=== PATIENT | male | born 1975 | race Caucasian/White ===

== ENCOUNTER 2017-07-31 14:30 | Emergency (ER) | payer SELFPAY ==
[2017-07-31 14:35] VITALS: BP 148/91; PULSE 74; TEMP 98.1; BMI 26.6
--- NOTE | 2017-07-31 15:44 | PDOC ---
Attending Attestation - Resident Resident Name: Raghu Hodge - ED Attending Attestation I have performed the following: I have examined & evaluated the patient, The case was reviewed & discussed with the resident, I agree w/resident's findings & plan, Exceptions are as noted - HPI HPI: 07/31/17 16:01 41yo M with no PMH p/w SOB, worse when speaking for 2 weeks. Not exertional, has no reduced ET. +CP when he takes a deep breath. No trauma. Went to urgent care 2 weeks ago and had a negative workup. No recent immobility, surgery. No hx DVT/PE. No fevers, chills, cough. No abd pain, N/V/D, LE edema, rashes. - Physicial Exam PE: 07/31/17 16:08 GENERAL: Awake, alert, and fully oriented, in no acute distress HEAD: No signs of trauma EYES: PERRLA, EOMI, sclera anicteric, conjunctiva clear ENT: Auricles normal inspection, hearing grossly normal, nares patent, oropharynx clear without exudates. Moist mucosa NECK: Normal ROM, supple, no lymphadenopathy, JVD, or masses LUNGS: Breath sounds equal, clear to auscultation bilaterally. No wheezes, and no crackles HEART: Regular rate and rhythm, normal S1 and S2, no murmurs, rubs or gallops ABDOMEN: Soft, nontender, normoactive bowel sounds. No guarding, no rebound. No masses EXTREMITIES: Normal range of motion, no edema. No clubbing or cyanosis. No cords, erythema, or tenderness NEUROLOGICAL: Normal speech, cranial nerves intact, negative pronator drift, 5/ 5 strength in all 4 extremities, normal sensation to light touch in all 4 extremities, normal cerebellar exam, normal gait, normal reflexes and tone SKIN: Warm, Dry, normal turgor, no rashes or lesions noted. - Medical Decision Making 07/31/17 16:09 41yo M with no PMH p/w SOB and pleuritic CP. Vitals unremarkable. DDx includes but is not limited to bronchitis vs PNA vs ACS vs MSK pain. Pt does not meet any PERC criteria, therefore unlikely PE. Unlikely ACS as pt is healthy, EKG is non ischemic, and heart score is 0 but will check trop as it should likely be positive if there were any events. Plan: -CXR -labs -pain management -reassess 07/31/17 18:44 Labs, CXR, EKG wnl. On re-exam, lungs with some mild L base course BS. Bonib ordered after which patient reports some mild relief. Possible reactive airway disease> Will prescribe albuterol inhaler and DC to follow up at [facility] (pt is uninsured). I discussed the physical exam findings, ancillary test results and final diagnoses with the patient. I answered all of the patient's questions. The patient was satisfied with the care received and felt comfortable with the discharge plan and treatment plan. The patient will call their primary care physician within 24 hours to arrange follow-up and will return to the Emergency Department with any new, persistent or worsening symptoms. Discharge Disposition - Diagnosis Shortness of breath - Discharge Dispostion Disposition: HOME Condition at time of disposition: Stable Admit: No - Prescriptions Prescriptions: Albuterol Sulfate Inhaler - [Ventolin HFA Inhaler -] 1 - 2 inh PO Q4H PRN #1 inhaler PRN Reason: Shortness Of Breath - Referrals - Patient Instructions Printed Discharge Instructions: DI for Shortness of Breath Additional Instructions: Call [phone] for an appointment with a primary doctor within 1 week at [facility], [address] [place] [address]. Return to the emergency department if you have any new, worsening, or concerning symptoms Print Language: INDONESIAN - Post Discharge Activity - Transfer to Acute Care Facility Transfer comment: 07/31/17 18:46 I, Dr. Maricel Franks MD, attest that this document has been prepared under my direction and personally reviewed by me in its entirety. I further attest, that it accurately reflects all work, treatment, procedures and medical decision -making performed by me. Heart Score/ECG Review - History History: Slightly suspicious - Electrocardiogram EKG: Normal - Age Age: </= 45 - Risk Factors Based on the list above the patient has:: No risk factors known - Troponin Troponin: </= normal limit - Score Heart Score - Total: 0 #1 07/31/17 17:03 Twelve-lead EKG was performed and reviewed by me. Normal sinus rhythm, rate 65. Normal axis and normal intervals. No ST elevations.
--- NOTE | 2017-07-31 16:10 | PDOC ---
History of Present Illness - General Chief Complaint: Respiratory Stated Complaint: Shortness of Breath Time Seen by Provider: 07/31/17 15:31 History Source: Patient Exam Limitations: No Limitations - History of Present Illness Initial Comments: 07/31/17 15:53 The patient is a 41M with no PMH who presents to the ED with complaints of shortness of breath when he talks. The patient states that he went to an urgent care 2 weeks ago with the same complaint but they did not do anything for him. The patient states that this has worsened and he still feels short of breath when trying to have a conversation. The shortness of breath also occurs with exertion. He has no other complaints. Denies fever, chills, nausea, vomiting, CP. The pain is worse with deep breaths. Past History - Past Medical History Allergies/Adverse Reactions: Allergies Allergy/AdvReac Type Severity Reaction Status Date / Time No Known Allergies Allergy Verified 07/31/17 14:31 Home Medications: Ambulatory Orders Albuterol Sulfate Inhaler - [Ventolin HFA Inhaler -] 1 - 2 inh PO Q4H PRN #1 inhaler 07/31/17 Zolpidem Tartrate [Ambien] 5 mg PO HS 07/31/17 Other medical history: DENIES. - Suicide/Smoking/Psychosocial Hx Smoking History: Never smoked Have you smoked in the past 12 months: No Hx Alcohol Use: No Drug/Substance Use Hx: No Substance Use Type: None Review of Systems - Review of Systems Able to Perform ROS?: Yes Is the patient limited Italian proficient: No Constitutional: No: Chills, Fever HEENTM: No: Eye Pain, Nose Pain, Throat Pain Respiratory: Yes: Shortness of Breath. No: Cough Cardiac (ROS): No: Chest Pain, Palpitations ABD/GI: No: Constipated, Diarrhea, Nausea, Vomiting : No: Burning, Dysuria, Discharge Musculoskeletal: No: Back Pain, Neck Pain Integumentary: No: Bruising Neurological: No: Headache, Numbness, Tingling, Weakness Psychiatric: No: Stressors, Mood Swings *Physical Exam - Vital Signs Last Vital Signs Temp Pulse Resp BP Pulse Ox 98.1 F 74 18 148/91 99 07/31/17 14:31 07/31/17 14:31 07/31/17 14:31 07/31/17 14:31 07/31/17 14:31 - Physical Exam General Appearance: Yes: Nourished, Appropriately Dressed. No: Apparent Distress HEENT: positive: Normal Voice, Hearing Grossly Normal Respiratory/Chest: positive: Lungs Clear, Normal Breath Sounds. negative: Chest Tender, Respiratory Distress, Labored Respiration, Rapid RR, Decreased Breath Sounds, Crackles, Rales, Rhonchi, Stridor, Wheezing, Hyperresonant Cardiovascular: positive: Regular Rhythm, Regular Rate, S1, S2. negative: Diastolic Murmur, Systolic Murmur Gastrointestinal/Abdominal: positive: Flat, Soft. negative: Tender, Rebound, Tenderness, Hernia, Mass, Hepatomegaly Musculoskeletal: negative: CVA Tenderness (R), CVA Tenderness (L), Decreased Range of Motion Extremity: positive: Normal Inspection, Normal Range of Motion. negative: Coldness, Cyanosis, Calf Tenderness, Erythema Integumentary: positive: Dry, Warm. negative: Clammy, Diaphoresis Neurologic: positive: Fully Oriented, Alert, Normal Mood/Affect, Motor Strength 02/16 ED Treatment Course - LABORATORY CBC & Chemistry Diagram: 07/31/17 16:00 07/31/17 16:00 - RADIOLOGY Radiology Studies Ordered: Category Date Time Status CHEST PA & LAT [RAD] Stat Radiology 07/31/17 15:51 Ordered Medical Decision Making - Medical Decision Making 07/31/17 16:11 The patient is a 41M with no PMH who presented to the ED with shortness of breath when speaking. I will do a basic workup for the patient to rule out PNA and ACS. Will reassess when labs/imaging return. 07/31/17 18:41 The patient will be getting duoneb treatment and discharge with follow up at [address] [place] [address]. *DC/Admit/Observation/Transfer Diagnosis at time of Disposition: Shortness of breath - Discharge Dispostion Disposition: HOME Condition at time of disposition: Stable - Prescriptions Prescriptions: Albuterol Sulfate Inhaler - [Ventolin HFA Inhaler -] 1 - 2 inh PO Q4H PRN #1 inhaler PRN Reason: Shortness Of Breath - Patient Instructions Printed Discharge Instructions: DI for Shortness of Breath Additional Instructions: Call [phone] for an appointment with a primary doctor within 1 week at , [address] [place] [address]. Return to the emergency department if you have any new, worsening, or concerning symptoms Print Language: MOSOTHO
[2017-07-31 16:11] LABS: BASOPHIL 0.5 % (0-2.0); MCH 31.3 pg (25.7-33.7); MCHC 34.8 g/dl (32.0-35.9); MEAN CELL VOLUME 89.9 fl (80-96); MEAN PLT VOLUME 7.8 fl (7.5-11.1); NEUTROPHILS 60.6 % (42.8-82.8); PLATELET COUNT 276 K/MM3 (134-434); WHITE BLOOD COUNT 7.9 K/mm3 (4.0-10.0)
[2017-07-31 16:38] LABS: ALBUMIN 4.4 g/dl (3.4-5.0); ANION GAP 7 (8-16); BILIRUBIN,TOTAL 0.7 mg/dL (0.2-1.0); CALCIUM 8.7 mg/dL (8.5-10.1); CO2 29 mmol/L (21-32); GLUCOSE,RANDOM 97 mg/dL (74-106); SGOT/AST 26 U/L (15-37); SGPT/ALT 70 U/L (12-78); TOT PROT 7.5 g/dl (6.4-8.2)
[2017-07-31 16:40] LABS: ALK PHOS 65 U/L (45-117); CPK 134 IU/L (39-308); TROPONIN I < 0.02 ng/ml (0.00-0.05)
[2017-07-31] MEDS ORDERED: ALBUTEROL SO4 2.5/IPRATROPIUM 0.5 INH SOL 3 ML VIAL.NEB. NEB ONE (18:16)
--- NOTE | 2017-08-01 11:48 | EKG ---
Test Reason : Blood Pressure : / mmHG Vent. Rate : 065 BPM Atrial Rate : 065 BPM P-R Int : 180 ms QRS Dur : 098 ms QT Int : 372 ms P-R-T Axes : 023 002 034 degrees QTc Int : 386 ms NORMAL SINUS RHYTHM NORMAL ECG NO PREVIOUS ECGS AVAILABLE Confirmed by KALA BROWN, LAUREN ([id number]) on 08/01/2017 11:47:52 AM Referred By: Confirmed By:LAUREN ARMENDARIZ MD
== END 2017-07-31 18:53 | disposition home or self-care (01) ==
LOC: JER 14:30
PROC: 3E0F7GC Introduction of Other Therapeutic Substance into Respiratory Tract, Via Natural or Artificial Opening (ICD-10-PCS; principal; 2017-07-31)
DX: R06.02 Shortness of breath (principal)
CPT/HCPCS: 36415; 71020-TC; 80053; 82550; 84484; 85025; 93005; 93010; 99282-25